=== PATIENT | female | born 1955 | race Caucasian/White ===

== ENCOUNTER 2019-03-27 07:42 | Day surgery (SDC) | payer MEDICARE, BC ==
[2019-03-24 16:21] LABS: BASOPHILS # (AUTO) 0.1 X10'3 (0-0.2); BASOPHILS % (AUTO) 0.6 % (0-1); EOSINOPHILS # (AUTO) 0.3 X10'3 (0-0.9); EOSINOPHILS % (AUTO) 2.6 % (0-6); LYMPHOCYTES # (AUTO) 2.9 X10'3 (1.1-4.8); MEAN CORPUSCULAR HGB CONC 33.1 g/dL (33.0-36.5); MEAN CORPUSCULAR VOLUME 84.8 FL (78-98); MEAN PLATELET VOLUME 9.1 FL (7.4-10.4); MONOCYTES # (AUTO) 0.6 X10'3 (0-0.9); MONOCYTES % (AUTO) 5.3 % (2-12); NEUTROPHILS # (AUTO) 6.9 X10'3 (1.8-7.7); NEUTROPHILS % (AUTO) 64.5 % (42-75); PRE OP HEMATOCRIT 38.2 % (35.0-45.0); PRE OP HEMOGLOBIN 12.6 g/dL (12.0-16.0); PRE OP PLATELET COUNT 292 X10'3 (140-440); RED CELL DISTRIBUTION WIDTH 14.9 % (11.5-14.5)
[2019-03-24 16:32] LABS: CLARITY,URINE SLIGHTLY CLOUDY (Clear); COLOR,URINE YELLOW (Yellow); GLUCOSE, URINE NEGATIVE (Neg); KETONES,URINE NEGATIVE (Neg); LEUKOCYTE ESTERASE ,URINE SMALL (Neg); NITRITES, URINE NEGATIVE (Neg); OCCULT BLOOD,URINE SMALL (Neg); PH,URINE 5.5 (4.8-8.0); PROTEIN,URINE NEGATIVE (Neg); UA COLLECTION TYPE CLN CATCH MIDSTREAM; UROBILINOGEN,URINE 0.2 E.U/dL (0.2-1.0)
[2019-03-24 16:33] LABS: PRE OP PROTIME 10.1 SECONDS (9.0-12.0)
[2019-03-24 16:36] LABS: ALBUMIN 3.5 G/DL (3.4-5.0); ALBUMIN/GLOBULIN RATIO 0.9 (1.1-1.5); ALKALINE PHOSPHATASE 150 IU/L (46-116); BLOOD UREA NITROGEN 7 MG/DL (7-18); BUN/CREATININE RATIO 7.6 (6.6-38.0); CALCIUM 9.2 MG/DL (8.5-10.1); CHLORIDE 104 MMOL/L (99-107); CREATININE 0.92 MG/DL (0.40-0.90); PRE OP ANION GAP 8 (8-16); PRE OP AST 23 U/L (10-37); PRE OP BILIRUB, TOTAL 0.3 MG/DL (0.0-1.0); PRE OP GLUCOSE 129 MG/DL (70-104); PRE OP SODIUM 141 MMOL/L (135-145); TOTAL CARBON DIOXIDE 28.6 MMOL/L (24-32); TOTAL PROTEIN 7.2 G/DL (6.4-8.2); eGFR 62 ML/MIN
[2019-03-24 16:37] LABS: PRE OP ALT 109 U/L (30-65)
[2019-03-24 16:40] LABS: SQUAMOUS EPITHELIAL CELL,UR MANY /LPF (FEW)
[2019-03-24 16:41] LABS: BACTERIA,URINE FEW /HPF (Neg); RBC,URINE 0-2 /HPF (0-2)
[~2019-03-27] VITALS: Ht 172.7 cm; Wt 116.7 kg
[2019-03-27] VITALS (9 sets, daily range): BP systolic 121–156; BP diastolic 71–97
[~2019-03-27 07:42] MED LIST: AMIT10TA6 PO; ATOR40TA PO; ESCI20TA38 PO; LEVE750T PO; LEVO175T7 PO; LISI-604 PO; METF-437 PO; MONT10TA24 PO; OMEP20CA11 PO
[2019-03-27] MEDS ORDERED: famotidine 20mg tablet PO ONE (07:45)
[2019-03-27] MEDS ORDERED: ceFOXitin 2 GM ADDVANTGE BAG 50 ML IV ONE (07:45)
[2019-03-27] MEDS ORDERED: ringers solution, lacted 1,000 ML IV SCH ×2 (07:45→10:08)
[2019-03-27] MEDS ORDERED: tranexamic acid inj. 1,000 MG in normal saline 100 ML IV ONE (07:45)
[2019-03-27] MEDS ORDERED: albuterol 2.5 MG/3 ML nebule NEB ONE (07:45)
[2019-03-27] MEDS ORDERED: fentaNYL/PF 50MCG/1 ML 2ML syringe ONE (09:48)
[2019-03-27] MEDS ORDERED: midazolam 2 mg/2 ml injection ONE (09:48)
[2019-03-27] MEDS ORDERED: propofol inj 20 ML IV ONE (09:49)
[2019-03-27] MEDS ORDERED: ondansetron/PF 4mg/2ml inj ONE (09:49)
[2019-03-27] MEDS ORDERED: LIDOcaine 2% (20mg/ml) 5ml vial ONE (09:49)
[2019-03-27] MEDS ORDERED: ondansetron/PF 4mg/2ml inj IV PRN (10:10)
[2019-03-27] MEDS ORDERED: labetalol 20mg/4ml (5mg/ml) syringe IV PRN (10:10)
[2019-03-27] MEDS ORDERED: hydrALAZINE 20mg/ml inj. IV PRN (10:10)
[2019-03-27] MEDS ORDERED: fentaNYL/PF 50MCG/1 ML 2ML syringe IV PRN ×2 (10:10)
[2019-03-27] MEDS ORDERED: morphine 4 MG/ML inj SYRINge IV PRN ×2 (10:10)
--- NOTE | 2019-03-27 10:22 | NUR ---
Received from OR via [facility] , accompanied by Anesthesiologist HEATHER and report given by Anesthesiolgist. PATIENT WITH 20G PIV IN LEFT UE RUNNING LR AT 100. DENIES PAIN. ONE KENDRA PAD IN PLACE. 10L MASK ON WITH 97% SATURATIONS. Addendum: 03/27/19 at 1032 by Luis Dominguez RN, RN Amended: Links added.
--- NOTE | 2019-03-27 11:32 | NUR ---
ALL DC CRITERIA HAS BEEN MET. IV TAKEN OUT WITHOUT COMPLICATIONS. ALL INSTRUCTIONS COVERED AND ALL QUESTIONS ANSWERED. DRESSINGS CDI. OUT VIA WHEELCHAIR TO PERSONAL VEHICLE WHERE PATIENT WAS SECURED IN AND DRIVEN HOME BY FAMILY. DRESSED SELF AND VOIDED PRIOR TO LEAVING. DENIES PAIN. PATIENT WAS ABLE TO SPEAK TO MD PRIOR TO DC. MOTHER DROVE PATIENT HOME. Addendum: 03/27/19 at 1156 by Luis Dominguez RN, RN Amended: Links added.
== END 2019-03-27 11:32 | disposition home or self-care (01) ==
LOC: PAS 07:42
PROVIDERS: ATTEND Obstetrics & Gynecology
DX: N85.8 Other specified noninflammatory disorders of uterus (principal); I10 Essential (primary) hypertension; G47.30 Sleep apnea, unspecified; K21.9 Gastro-esophageal reflux disease without esophagitis; E03.9 Hypothyroidism, unspecified; E66.9 Obesity, unspecified; Z68.41 Body mass index [BMI] 40.0-44.9, adult; Z87.891 Personal history of nicotine dependence; Z86.73 Personal history of transient ischemic attack (TIA), and cerebral infarction without residual deficits; Z79.899 Other long term (current) drug therapy
CPT/HCPCS: 36415; 58120; 58555; 80053; 81001; 82948; 85025; 85610; 85730; 86885; 86900; 86901; 93005; J0694; J2001; J2250; J2405; J2704; J3010; J7030; J7120; 88305; A4355; A4618

== ENCOUNTER 2019-08-12 07:04 | Day surgery (SDC) | payer MEDICARE, BC ==
[2019-08-07 10:52] LABS: BASOPHILS % (AUTO) 0.3 % (0-1); EOSINOPHILS # (AUTO) 0.2 X10'3 (0-0.9); EOSINOPHILS % (AUTO) 1.8 % (0-6); LYMPHOCYTES # (AUTO) 2.3 X10'3 (1.1-4.8); LYMPHOCYTES % (AUTO) 25.1 % (21-51); MEAN CORPUSCULAR HEMOGLOBIN 27.9 PG (27.0-31.0); MEAN CORPUSCULAR HGB CONC 33.2 g/dL (33.0-36.5); MEAN CORPUSCULAR VOLUME 83.9 FL (78-98); MEAN PLATELET VOLUME 8.7 FL (7.4-10.4); MONOCYTES # (AUTO) 0.6 X10'3 (0-0.9); MONOCYTES % (AUTO) 6.8 % (2-12); NEUTROPHILS # (AUTO) 5.9 X10'3 (1.8-7.7); PRE OP HEMATOCRIT 39.1 % (35.0-45.0); PRE OP PLATELET COUNT 308 X10'3 (140-440); RED BLOOD COUNT 4.66 X10'6 (4.20-5.60); RED CELL DISTRIBUTION WIDTH 14.7 % (11.5-14.5)
[2019-08-07 11:07] LABS: ALBUMIN 3.6 G/DL (3.4-5.0); ALKALINE PHOSPHATASE 118 IU/L (46-116); BLOOD UREA NITROGEN 10 MG/DL (7-18); BUN/CREATININE RATIO 11.8 (6.6-38.0); CALCIUM 9.1 MG/DL (8.5-10.1); CHLORIDE 102 MMOL/L (99-107); CREATININE 0.85 MG/DL (0.40-0.90); PRE OP ALT 26 U/L (30-65); PRE OP ANION GAP 6 (8-16); PRE OP AST 14 U/L (10-37); PRE OP BILIRUB, TOTAL 0.5 MG/DL (0.0-1.0); PRE OP GLUCOSE 124 MG/DL (70-104); PRE OP POTASSIUM 4.3 MMOL/L (3.4-5.1); PRE OP SODIUM 139 MMOL/L (135-145); TOTAL CARBON DIOXIDE 30.8 MMOL/L (24-32); TOTAL PROTEIN 7.3 G/DL (6.4-8.2); eGFR 67 ML/MIN
[~2019-08-12] VITALS: Ht 172.7 cm; Wt 120.5 kg
[~2019-08-12 07:04] MED LIST changes: +Cefazolin 2GM/100ML NS IVPB 100 ML IV ONE; -ESCI20TA38 PO; +ESCI20TA45 PO; -OMEP20CA11 PO; +OMEP20CA15 PO; +ceFAZolin 1GM/D5W- ADD-VANTAGE 50 ML IV ONE; +famotidine 10mg tablet PO ONE; +ringers solution, lacted 1,000 ML IV SCH
[2019-08-12] MEDS ORDERED: ringers solution, lacted 1,000 ML IV SCH (08:41)
[2019-08-12] MEDS ORDERED: morphine 4 MG/ML inj SYRINge IV PRN ×2 (08:45)
[2019-08-12] MEDS ORDERED: meperidine/PF 25mg/ml syringe IV PRN ×3 (08:45)
[2019-08-12] MEDS ORDERED: ondansetron/PF 4mg/2ml inj IV PRN (08:45)
[2019-08-12] MEDS ORDERED: proCHLORperazine 10 MG/2 ml inj IV PRN (08:45)
[2019-08-12] MEDS ORDERED: sevoflurane 250ml liquid IH ONE (09:31)
[2019-08-12] MEDS ORDERED: BUPIVAcaine/PF 2.5 mg/ml (0.25%) 30ml vial ONE (09:32)
[2019-08-12] MEDS ORDERED: fentaNYL/PF 50MCG/1 ML 2ML syringe ONE (09:37)
[2019-08-12] MEDS ORDERED: midazolam 2 mg/2 ml injection ONE (09:37)
[2019-08-12] MEDS ORDERED: propofol inj 20 ML IV ONE (10:03)
[2019-08-12 10:15] VITALS: BP 143/89
--- NOTE | 2019-08-12 10:15 | NUR ---
Received from OR via BED, accompanied by Anesthesiologist DR PARTIDA-- and report given by Anesthesiolgist. PATIENT A&OX4, DENIES PAIN, V/S WNL, NEUROVASCULAR CHECKS INTACT, 20G PIV CLARISSE, SCD ON, ACCUCHECK 140, DRESSING TO RIGHT THIGH CDI.
[2019-08-12 10:25] VITALS: BP 144/83
[2019-08-12 10:35] VITALS: BP 155/86
[2019-08-12 10:38] VITALS: BP 126/79
[2019-08-12 10:43] VITALS: BP 126/79
[2019-08-12 10:45] VITALS: BP 141/83
--- NOTE | 2019-08-12 10:45 | NUR ---
PATIENT A&OX4, DENIES PAIN, V/S WNL, NEUROVASCULAR CHECKS INTACT, 20G PIV LUE D/C, SCD OFF, ACCUCHECK 140, DRESSING TO RIGHT THIGH CDI. I HAVE REVIEWED D/C INSTRUCTIONS WITH PATIENT AND FAMILY AND THEY HAVE VERBALIZED UNDERSTANDING. PATIENT D/C HOME WITH ALL BELONGINGS AND FAMILY GAVE TRANSPORT HOME.
== END 2019-08-12 10:45 | disposition home or self-care (01) ==
LOC: PAS 07:04
PROVIDERS: ATTEND Surgery
DX: D17.23 Benign lipomatous neoplasm of skin and subcutaneous tissue of right leg (principal); K21.9 Gastro-esophageal reflux disease without esophagitis; F32.9 Major depressive disorder, single episode, unspecified; E11.9 Type 2 diabetes mellitus without complications; I10 Essential (primary) hypertension; G47.30 Sleep apnea, unspecified; Z87.891 Personal history of nicotine dependence; Z98.890 Other specified postprocedural states; Z90.49 Acquired absence of other specified parts of digestive tract; Z90.710 Acquired absence of both cervix and uterus; Z86.73 Personal history of transient ischemic attack (TIA), and cerebral infarction without residual deficits
CPT/HCPCS: 27337; 36415; 80053; 82948; 85025; J0690; J2250; J2704; J3010; J3490; A4215; A4618; A6449; A7000; J7120

== ENCOUNTER 2023-09-25 09:23 | Outpatient (CLI) | payer MEDICARE, BC ==
[~2023-09-25 09:23] MED LIST changes: -Cefazolin 2GM/100ML NS IVPB 100 ML IV ONE; +ESCI20TA39 PO; -ESCI20TA45 PO; -LISI-604 PO; +LISI5TAB22 PO; +MONT-40 PO; -MONT10TA24 PO; -ceFAZolin 1GM/D5W- ADD-VANTAGE 50 ML IV ONE; -famotidine 10mg tablet PO ONE; -ringers solution, lacted 1,000 ML IV SCH
== END 2023-09-25 23:59 | disposition home or self-care (01) ==
LOC: RAD 09:23
PROVIDERS: ATTEND Internal Medicine
DX: M48.02 Spinal stenosis, cervical region (principal); M47.812 Spondylosis without myelopathy or radiculopathy, cervical region; M50.31 Other cervical disc degeneration, high cervical region; M25.78 Osteophyte, vertebrae
CPT/HCPCS: 72141